=== PATIENT | male | born 1980 | race Caucasian/White ===

== ENCOUNTER 2025-03-01 15:39 | Emergency (ER) | payer BC, SELFPAY ==
--- OUTSIDE RECORDS SUMMARY | 2025-03-01 15:42 | XMS_ITS | Clinical Summary ---
Author Organization [facility] Address [address] [place] [address] Phone Care Team Providers Care Credit Product Analyst Name Role Phone JohnsonRichard Madonna NIEVES Primary Care Provider Epi Kapadia MD Unavailable Allergies No known active allergies Medications famotidine (PEPCID) 20 MG Tablet Take 20 mg by mouth 2 times daily. Active guar gum (BENEFIBER) Powder Take 1 Tbsp by mouth daily. Active Probiotic Product (PROBIOTIC DAILY PO) Take by mouth. Active omeprazole (PriLOSEC) 40 MG CAPSULE DELAYED RELEASE Take 1 Capsule by mouth daily. 90 Capsule 1 06/05/2022 Active Active Problems No known active problems Family History Medical History Relation Name Comments Cancer Brother 1 Leukemia/Lymphoma Brother 1 Hodgkins L ymphoma No Known Problems Brother 2 No Known Problems Daughter 1 No Known Problems Daughter 2 Hypertension Father Heart Attack Maternal Grandmother Cancer Maternal Uncle 1 throat canc er Diabetes Maternal Uncle 2 Hypertension Mother No Known Problems Son Relation Name Status Comments Brother 1 Alive Brother 2 Alive Daughter 1 Alive Daughter 2 Alive Father Alive Maternal Grandmother Maternal Uncle 1 Maternal Uncle 2 Mother Alive Son Alive Social History Tobacco Use Types Packs/Day Years Used Date Smoking Tobacco: Every Day Cigarettes 0.3 12.5 Started: 2012 Smokeless Tobacco: Never Tobacco Cessation:Ready to Q uit: No; Counseling Given: No Alcohol Use Standard Drinks/Week Comments Yes 4 (1 standard drink = 0.6 oz pur e alcohol) AUDIT-C Answer Date Recorded Q1: How often do you have a drink containing alc ohol? Never 11/23/2019 Average Number of Drinks Not on file 020 Frequency of Binge Drinking Not on file 10/30 Sexually Active Control Partners Comments Yes None Female Sex and Gender Information Value Date Recorded Sex Assigned at Not on file Legal Sex Male 11:26 PM CDT Gender Identity Not on file Sexual Orientation Not on file Last Filed Vital Signs Vital Sign Reading Time Taken Comments Blood Pressure 130/84 06/16/2022 8:15 AM CDT Pulse 68 06/16/2022 8:15 AM CDT Temperature 36.6 C (97.8 F) 06/16/2022 8:15 AM CDT Respiratory Rate 20 06/16/2022 8:15 AM CDT Oxygen Saturation 97% 06/16/2022 8:15 AM CDT Inhaled Oxygen Concentration - - Weight 88.4 kg (194 lb 12.8 oz) 06/16/2022 8:15 AM CDT Height 180.3 cm (5' 11) 06/16/2022 8:15 AM CDT Body Mass Index 27.17 06/16/2022 8:15 AM CDT Plan of Treatment Health Maintenance Due Date Last Done Comments Hepatitis C Virus (HCV) Screening 1982 TdaP Immunization 1982 Human Papillomavirus (HPV) Immunization (1 - Male 3-dose series) 1997 SARS-COV-2 Immunization ( - season) 2024 Influenza Immunization (Seas on Ended) 2025 Respiratory Syncytial Virus (RSV) Immunization (Adult) (1 - 1-dose 75+ series) 2057 Meningococcal Immunization (ACWY) Aged Out 04/10/2000 No longer eligible based on patient's age to complete this topic DTaP/Tdap/Td Immunization Discontinued 2007, 04/10/2000 Hepatitis B Immunization Completed 008, 03/16/2008, 12/10/2007 Pneumococcal Immunization Combined Aged Out No longer eligible based on patient's age to complete this topic Rotavirus Immunization Aged Out No lo nger eligible based on patient's age to complete this topic Medical Devices Implanted Type Area Nurse General Duty Device Identifier Shelf Expiration Date Model / Serial / Lot Clip 360 Resolution 235cm - [id number] Implanted:Qty: 1 on 05/30/2022 by Cain Johnson MD at [facility] IMPLANT [employer] 01/02/2024 [id number] / [id number] / [id number] Insurance [facility] Care Teams Credit Product Analyst Relationship Specialty Start Date End Date Richard Ornelas DO [address] [place] [address] PCP - General Internal Medicine 01/28/19 Epi Kapadia MD #[address] [phone] Consulting Physician General Surgery 06/13/22
--- OUTSIDE RECORDS SUMMARY | 2025-03-01 15:42 | XMS_ITS | Continuity of Care Document ---
Author Name [facility] Organization [facility] Care Team Providers Care Bleaching Supervisor Name Role Phone [facility] Unavailable Unavailable Encounters Combined list of: 1) Encounters from [facility] facilities going backup to the last 18 months, not all VA inpatient encounters are included; 2) Encounters from the Department of [employer] facilities going backup to 280 months. Location Location Details Encounter Type Encounter Number Reason For Visit Attending Provider ADM Date DC Date Status Disposition Source [facility] Outpatient Encounter [id number] 11/04 [facility] Outpatient [facility]counter [id number] 07[facility]
--- OUTSIDE RECORDS SUMMARY | 2025-03-01 15:44 | XMS_ITS | Continuity of Care Document ---
Author Name [facility] Organization [facility] Care Team Providers Care Veterinarian Name Role Phone [facility] Unavailable Unavailable Encounters Combined list of: 1) Encounters from [facility] facilities going backup to the last 18 months, not all VA inpatient encounters are included; 2) Encounters from the Department of [employer] facilities going backup to 280 months. Location Location Details Encounter Type Encounter Number Reason For Visit Attending Provider ADM Date DC Date Status Disposition Source [facility] Outpatient Encounter [id number] 11/04 [facility] Outpatient Encounter [id number] 07/15 [facility]
[2025-03-01 15:48] VITALS: BP 134/84; PULSE 69; RESP 16; TEMP 36.7; O2SAT 99
--- NOTE | 2025-03-01 16:46 | ED_ITS ---
HPI - Skin/Abscess/Foreign Bdy General Chief complaint: Skin/Abscess/Foreign Body Stated complaint: rash all over Time Seen by Provider: 03/01/25 16:40 Source: patient and RN notes reviewed Mode of arrival: ambulatory Limitations: no limitations History of Present Illness HPI narrative: Patient presents today complaining of severely pruritic rash since yesterday afternoon. Denies any new household products, foods, medications, plantar animal exposures. Started in the waistline and has spread to the upper legs. He has been inside working without any time outside. He has tried some topical Benadryl without relief. Related Data Home Medications ?Medication ?Instructions ?Recorded ?Confirmed ?Last Taken ?Type omeprazole 03/01/25 Unknown History Allergies Allergy/AdvReac Type Severity Reaction Status Date / Time No Known Allergies Allergy Uncoded 06/20/19 19:36 PMFSH Comments At time of signature, I have reviewed and agree with nursing past medical, surgical, social and family history unless otherwise noted. Please see nursing chart for further information. There is no relevant family history pertinent to the presenting complaint Exam Narrative: GENERAL: Well-appearing, well-nourished, and in no acute distress. HEAD: Normocephalic, atraumatic. EYES: EOMI. No redness or drainage. Conjunctivae normal. ENT: Mucous membranes pink and moist. NECK: Normal AROM. CHEST: No respiratory distress. EXTREMITIES: Normal range of motion. No edema. SKIN: Warm, dry,. Capillary refill normal. Normal skin turgor. Scattered papules on an erythematous base over the lower abdomen extending to the bilateral inner thighs, lower back. No induration, fluctuance, drainage, crusting noted. NEURO: No focal deficits. Alert and oriented x3. Gait steady. PSYCH: Normal affect. No signs of depression or anxiety. Course Course Level of Care: Express Care Visit Vital Signs Vital signs: Vital Signs Temperature 98.1 F 03/01/25 15:48 Pulse Rate 69 03/01/25 15:48 Respiratory Rate 16 03/01/25 15:48 Blood Pressure 134/84 03/01/25 15:48 Pulse Oximetry 99 03/01/25 15:48 Oxygen Delivery Room Air 03/01/25 15:48 Temperature 98.1 F 03/01/25 15:48 Pulse Rate 69 03/01/25 15:48 Respiratory Rate 16 03/01/25 15:48 Blood Pressure 134/84 03/01/25 15:48 Pulse Oximetry 99 03/01/25 15:48 Oxygen Delivery Room Air 03/01/25 15:48 Reviewed MDM - Skin/Abscess/Foreign Bdy MDM Narrative Medical decision making narrative: Patient is pleasant 45-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 Prescription for prednisone sent to pharmacy. Insect bite versus contact dermatitis. Vital signs stable. Anticipatory guidance given. Differential Diagnosis Differential diagnosis: Likely urticaria, cellulitis, eczema, insect bites, impetigo and contact dermatitis Critical Care Time Critical Care Time Critical Care Time: No Discharge Plan Discharge Clinical Impression: Contact dermatitis Qualifiers: Contact dermatitis type: unspecified Contact dermatitis trigger: unspecified trigger Qualified Code(s): L25.9 - Unspecified contact dermatitis, unspecified cause Patient Disposition: Home Condition: Stable Instructions: Contact Dermatitis (DC) Additional Instructions: Please take the prednisone as directed. Taking antihistamine for itching such as Zyrtec, Claritin, Temi, or Benadryl. Follow-up with your PCP with any additional concerns. Your blood pressure was elevated above 120/80 today at Urgent Care. This puts you above the threshold for follow up. Please schedule a followup visit with your personal physician as soon as possible, for further evaluation and treatment. Even blood pressure exceeding 120/80 may indicate pre-hypertension. Patient Language: Indonesian Prescriptions: New prednisone 20 mg tablet 40 mg PO DAILY 5 Days Qty: 10 0RF No Action omeprazole Follow-up/Referrals: PHYSICIAN NOT ON STAFF,NONSTAFF [Primary Care Provider] - Time of Disposition: 16:50
== END 2025-03-01 16:53 | disposition home or self-care (01) ==
PROVIDERS: Emergency Provider Nurse Practitioner
DX: L25.9 Unspecified contact dermatitis, unspecified cause (principal)
CPT/HCPCS: 99203; G0463